=== PATIENT | male | born 1965 | race Caucasian/White ===

== ENCOUNTER → 2017-08-05 | Outpatient (CLI) | payer OTHER ==
[~2017-08-05] MED LIST: ATIVAN0.5 MG PER TUBE; COMPAZINE10 MG PER TUBE; COMPAZINE25 M1 RECTAL; ENDOCET 5-3251 EACH PER TUBE; FENTANYL PA12 MCG/H1 TRANSDERM; LISINOPRIL20 MG; MOBIC15 MG; PRILOSEC40 MG; TRANSDERM-SCO1 PATC1 TD; TUBE FEEDING PER TUBE; ZANTAC 15MG/15 MG/M1 PER TUBE; ZOFRAN SUSP4 MG/5 ML PER TUBE
--- NOTE | 2017-08-14 23:24 | PROC ---
[facility] [address] [place] [address] PROCEDURE REPORT Name: JUMAWAQAR Molina Room: [facility]#: [id number] Admission: 08/05/17 Attend Phys: Antwon Meléndez MD Discharge: Date of : 65 Report #: [id number] THIS REPORT FOR: //name// CC: Antwon Williamson MD DATE OF PROCEDURE: 08/05/2017 [facility] phone is [phone]. REFERRING PHYSICIANS: 1. Esdras Ogden M.D. 2. Rosa Williamson M.D. 3. Esdras Marques M.D. 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 Radiation treatments were completed on 03/09/2013. PROCEDURE: Nasopharyngolaryngoscopy. FINDINGS: On nasopharyngolaryngoscopy via the left nostril, after application of a small amount of 2% viscous lidocaine orally and 2% viscous lidocaine to the left nostril, there were no visible lesions in the nasopharynx. There were no visible lesions in the posterior oropharynx. There were no visible lesions involving the base of tongue. The true vocal cords were normally mobile bilaterally, without any visible lesions. There was no evidence of head and neck cancer. Thank you for allowing me to participate in the care of this patient. <ELECTRONICALLY SIGNED> By: Antwon Meléndez MD 08/14/17 2324 1014 [id number] Meléndez MD /nt
--- NOTE | 2017-08-14 23:26 | ONC ---
[place] [address] RADIATION ONCOLOGY NOTE Name: WAQAR DENNISON Room: [facility]#: [id number] Admission: 08/05/17 Attend Phys: Antwon Meléndez MD Discharge: Date of : 65 Report #: [id number] THIS REPORT FOR: //name// CC: Antwon Clay MD DATE OF SERVICE: 08/05/2017 REFERRING PHYSICIANS: Esdras Marques DO; Rosa Williamson MD; Esdras Ogden MD [facility] phone is [phone]. PRIMARY SITE AND HISTOPATHOLOGY: The patient had findings consistent with a stage T3 N0 M0 left tonsillar cancer/base of tongue cancer. The patient went on to receive chemoradiotherapy and radiation treatments were completed on 03/09/2013. INTERVAL NOTE: The patient is eating a regular diet. The patient is swallowing well. The patient has a good appetite. He is eating well. He said that, yesterday, he had a cheese steak sandwich and he swallowed that fine. He said that he had a prescription given to him for azithromycin because of findings consistent with an upper respiratory infection about a month ago. MEDICATIONS: 25 mcg of levothyroxine. He is on meloxicam for arthritic pains, Prilosec, hydrochlorothiazide and PreviDent. SOCIAL HISTORY: The patient is . 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 Cigarettes: he does not smoke. He has 2 sons. REVIEW OF SYSTEMS: RESPIRATORY: The patient was not short of breath. His breathing was baseline. MUSCULOSKELETAL: He had good range of motion of his upper extremities. PHYSICAL EXAMINATION: VITAL SIGNS: The patient weighed 243.4 pounds on 08/05/2017 and 245.6 pounds on 02/04/2017 and on 08/05/2017 blood pressure was 136/94, pulse 66, respirations 20, oxygen saturation was 94%. LYMPH NODES: The patient had no palpable cervical or supraclavicular lymphadenopathy. HEAD, EYES, EARS, NOSE AND THROAT: Mouth had no suspicious visible lesions or suspicious palpable lesions in the mouth. On nasopharyngolaryngoscopy via the left nostril after applying a small amount of 2% viscous lidocaine orally and 2% viscous lidocaine to the left nostril with a cotton swab, there were no visible lesions in the nasopharynx. There were no visible lesions in the posterior oropharynx. There were no visible lesions in [place] [address] RADIATION ONCOLOGY NOTE Name: WAQAR DENNISON Room: [facility]#: [id number] Admission: 08/05/17 Attend Phys: Antwon Meléndez MD Discharge: Date of : 65 Report #: [id number] vocal cords were normally mobile bilaterally without any visible lesions. HEART: Had a regular rate and rhythm without murmur. LUNGS: were clear to auscultation. LABORATORY DATA: The patient's TSH was 3.95 which was within normal limits on his present dose of 25 mcg of levothyroxine. ASSESSMENT AND PLAN: 1. History of head and neck cancer- There is no evidence of head and neck cancer at this time. The patient was asked to return for a followup appointment to see me in about 6 months. 2. Hypothyroidism- The patient takes 25 mcg of levothyroxine and his TSH was within normal limits at that dose of levothyroxine. The patient was given a requisition for a TSH in about 6 months and he was asked to schedule a followup appointment to see me afterwards. 3. Dental care- The patient was given a refill for PreviDent for dental care. His teeth look like they are in good shape. 4. Hypertension- The patient takes hydrochlorothiazide for hypertension that is managed by his referring physician. Thank you for allowing me to participate in the care of this patient. <ELECTRONICALLY SIGNED> By: Antwon Meléndez MD 08/14/17 2326 1020 1111Antwon Meléndez MD /nt
== END ==
LOC: M.RTH 01:37
DX: I10 Essential (primary) hypertension (principal); E03.9 Hypothyroidism, unspecified

== ENCOUNTER → 2018-02-22 | Outpatient (CLI) | payer OTHER ==
--- NOTE | 2018-03-05 15:07 | ONC ---
[place] [address] RADIATION ONCOLOGY NOTE Name: WAQAR DENNISON Room: [facility]#: [id number] Admission: 02/22/18 Attend Phys: Antwon Meléndez MD Discharge: Date of : 65 Report #: [id number] THIS REPORT FOR: //name// CC: Antwon Williamson MD DATE OF PROCEDURE: 02/22/2018 REFERRING PHYSICIANS: Include Dr. Marques, Dr. Esdras Ogden, Dr. Rosa Williamson. PRIMARY SITE AND HISTOPATHOLOGY: The patient received chemoradiotherapy for a stage III left tonsillar/base of tongue cancer. Radiation treatments were completed on 03/09/2013. PROCEDURE: Nasopharyngolaryngoscopy. FINDINGS: On nasopharyngolaryngoscopy via the left nostril after application of a small amount of 2% viscous lidocaine orally and 2% viscous lidocaine to the left nostril, there were no visible lesions in the nasopharynx. There were no visible lesions in the posterior pharynx. There were no visible lesions involving the base of tongue. The true vocal cords were normally mobile bilaterally without any visible lesions. There was no evidence of head and neck cancer. Thank you for allowing me to participate in the care of this patient. <ELECTRONICALLY SIGNED> By: Antwon Meléndez MD 03/05/18 1507 1231 193MD dilshad Lee
--- NOTE | 2018-03-05 16:39 | ONC ---
[place] [address] RADIATION ONCOLOGY NOTE Name: WAQAR DENNISON Room: [facility]#: [id number] Admission: 02/22/18 Attend Phys: Antwon Meléndez MD Discharge: Date of : 65 Report #: [id number] THIS REPORT FOR: //name// CC: Antwon Ogden MD DATE OF SERVICE: 02/22/2018 REFERRING PHYSICIANS: Dr. Rosa Williamson, Dr. Esdras Ogden, Dr. Esdras Marques. [facility] phone is [phone]. PRIMARY SITE AND HISTOPATHOLOGY: The patient had findings consistent with stage a stage III , T3 N0 M0, left tonsillar/base of tongue cancer. The patient went on to receive chemoradiotherapy and radiation treatments were completed on 03/09/2013. INTERVAL NOTE: The patient is eating a regular diet. The patient is swallowing well. He has a good appetite. He eats food such as cheese sandwiches. MEDICATIONS: 25 mcg of levothyroxine, meloxicam, hydrochlorothiazide, PreviDent. SOCIAL HISTORY: The patient is . 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 Cigarettes: he does not smoke cigarettes. He has 2 sons. REVIEW OF SYSTEMS: RESPIRATORY: The patient was not short of breath. His breathing was baseline. MUSCULOSKELETAL: Good range of motion of his upper extremities. PHYSICAL EXAMINATION: VITAL SIGNS: The patient weighed 265 pounds on 02/22/2018, that is with all his police gear on. He was 243.4 pounds on 08/05/2017, but he did not have all his police gear on, so a lot of the difference in weight is just from the gear that he is wearing. Pulse was 74, blood pressure 146/96, respirations 18, oxygen saturation 96% on room air. LYMPH NODES: The patient had no palpable cervical or supraclavicular lymphadenopathy. HEAD, EYES, EARS, NOSE AND THROAT: Mouth had no suspicious visible lesions or suspicious palpable lesions in the mouth. On nasopharyngolaryngoscopy via the left nostril after applying a small amount of 2% viscous lidocaine orally and 2% viscous lidocaine to the left nostril with a cotton swab, there were no visible lesions in the nasopharynx and no visible lesions in [place] [address] RADIATION ONCOLOGY NOTE Name: WAQAR DENNISON Room: [facility]#: [id number] Admission: 02/22/18 Attend Phys: Antwon Meléndez MD Discharge: Date of : 65 Report #: [id number] There were no visible lesions in the base of tongue area. True vocal cords were normally mobile bilaterally without any visible lesions. HEART: Had a regular rate and rhythm without murmur. LUNGS: were clear to auscultation. LABORATORY DATA: The patient's TSH was 4.07 (within normal limits) on 02/17/2018 on the present dose of 25 mcg of levothyroxine per day. ASSESSMENT AND PLAN: 1. History of head and neck cancer- There is no evidence of head and neck cancer at this time. The patient was asked to schedule a follow up appointment to see me in about 8 months. 2. Hypothyroidism- The patient was given a refill for 25 mcg of levothyroxine. He was given a requisition for TSH around 10/2018 or 11/2018. He was asked to schedule a follow up appointment to see me afterwards. 3. Dental care- The patient was given a refill for PreviDent for dental care. 4. Hypertension- The patient takes hydrochlorothiazide and his blood pressure is managed by his primary care physician. Thank you for allowing me to participate in the care of this patient. <ELECTRONICALLY SIGNED> By: Antwon Meléndez MD 03/05/18 1639 1239 1941Dchristian Meléndez MD /nt
== END ==
LOC: M.RTH 02-10 09:30
DX: Z08 Encounter for follow-up examination after completed treatment for malignant neoplasm (principal); E03.9 Hypothyroidism, unspecified; I10 Essential (primary) hypertension; Z85.89 Personal history of malignant neoplasm of other organs and systems

== ENCOUNTER → 2018-11-24 | Outpatient (CLI) | payer OTHER ==
--- NOTE | ~2018-11-24 | ONC ---
[place] [address] RADIATION ONCOLOGY NOTE Name: JUMAWAQAR Jesse Room: [facility]#: [id number] Admission: 11/24/18 Attend Phys: Antwon Meléndez MD Discharge: Date of : 65 Report #: [id number] THIS REPORT FOR: //name// CC: Antwon Marques DATE OF SERVICE: 11/24/2018 REFERRING PHYSICIANS: 1. Esdras Marques DO 2. Esdras Ogden MD 3. Rosa Williamson MD PRIMARY SITE AND HISTOPATHOLOGY: The patient received chemoradiotherapy for stage 3 left tonsillar base of tongue cancer. Radiation treatments were completed on 03/09/2013. PROCEDURE: Nasopharyngolaryngoscopy. FINDINGS: On nasopharyngolaryngoscopy via the left nostril after application of a small amount of 2% viscous lidocaine orally, 2% viscous lidocaine to the left nostril, there were no visible lesions in the nasopharynx and no visible lesions in the posterior pharynx. No visible lesions involving the base of tongue. The true vocal cords are normally mobile bilaterally without any visible lesions. There is no evidence of neck cancer. Thank you for allowing me to participate in the care of this patient. By: [id number] [id number] Meléndez MD /nt
--- NOTE | ~2018-11-24 | ONC ---
[address] [address] RADIATION ONCOLOGY NOTE Name: JUMAWAQAR Molina Room: [facility]#: [id number] Admission: 11/24/18 Attend Phys: Anwton Meléndez MD Discharge: Date of : 65 Report #: [id number] THIS REPORT FOR: //name// CC: Antwon Marques DATE OF SERVICE: 11/24/2018 RADIATION ONCOLOGY FOLLOWUP NOTE REFERRING PHYSICIANS: Dr. Esdras Marques, Dr. Esdras Ogden. [facility] phone is [phone]. PRIMARY SITE AND HISTOPATHOLOGY: The patient has findings consistent with a stage 3, T3 N0 M0 left tonsillar base of tongue cancer. The patient went on to receive chemoradiotherapy. The radiation treatments were completed on 03/09/2013. INTERVAL NOTE: The patient is eating a regular diet. The patient is swallowing well. The patient has a good appetite. MEDICATIONS: He takes 25 mcg of levothyroxine per day as well as meloxicam, hydrochlorothiazide and PreviDent. SOCIAL HISTORY: The patient is . 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 Cigarettes, he does not smoke cigarettes. He has 2 sons. REVIEW OF SYSTEMS: RESPIRATORY: The patient was not short of breath. His breathing was baseline. MUSCULOSKELETAL: He has good range of motion of his upper extremities. PHYSICAL EXAMINATION: VITAL SIGNS: He weighed 239.2 pounds on 11/24/2018. Then on ____ he was 265 pounds, but had his police gear, which probably weighs about 30-40 pounds, probably has not changed too much weight. He is trying to lose weight, but he says his weight has been pretty stable. Blood pressure is 141/99, pulse 66, respirations 18, oxygen saturation is 100%. LYMPH NODES: The patient no palpable cervical or supraclavicular lymphadenopathy. HEAD, EYES, EARS, NOSE AND THROAT: Mouth had no suspicious visible lesions or suspicious palpable lesions in the mouth. On nasopharyngolaryngoscopyy via the left nostril after applying a small amount of 2% viscous lidocaine orally and 2% viscous lidocaine to left nostril with a cotton swab, there were no visible lesions in the nasopharynx, no visible lesions in the posterior oropharynx. There were no visible lesions in the base of tongue [place] [address] RADIATION ONCOLOGY NOTE Name: WAQAR DENNISON Room: [facility]#: [id number] Admission: 11/24/18 Attend Phys: Antwon Meléndez MD Discharge: Date of : 65 Report #: [id number] are normally mobile bilaterally without any visible lesions. HEART: Had a regular rate and rhythm without murmur. LUNGS: Clear to auscultation. LABORATORY DATA: From 11/21/2018, The TSH was 3.51, which is within normal limits with the patient taking 25 mcg of levothyroxine. ASSESSMENT AND PLAN: 1. History of head and neck cancer. There is no evidence of head and neck cancer at this time. The patient was given a requisition. The patient was asked to schedule a followup appointment to see me in about 12 months. 2. Hypothyroidism. The patient was given a refill for 25 mcg of levothyroxine. He was given a requisition for TSH to be done in about 1 year. He was asked to schedule a followup appointment to see me afterwards. 3. Dental care. The patient was given a refill for PreviDent for dental care. 4. Hypertension. The patient takes hydrochlorothiazide for his hypertension that is managed by his referring physicians. Thank you for allowing me to participate in the care of this patient. By: 1056 [id number] Meléndez MD /heath
== END | disposition home or self-care (01) ==
LOC: M.RTH 04:02
DX: Z08 Encounter for follow-up examination after completed treatment for malignant neoplasm (principal); Z85.810 Personal history of malignant neoplasm of tongue; E03.9 Hypothyroidism, unspecified; I10 Essential (primary) hypertension; Z79.899 Other long term (current) drug therapy; Z98.890 Other specified postprocedural states; Z88.6 Allergy status to analgesic agent

== ENCOUNTER → 2019-11-23 | Outpatient (CLI) | payer OTHER ==
--- NOTE | 2019-11-25 19:15 | ONC ---
[facility] [address] [place] [address] RADIATION ONCOLOGY NOTE Name: JUMAWAQAR Molina Room: [facility]#: [id number] Admission: 11/23/19 Attend Phys: Antwon Meléndez MD Discharge: Date of : 65 Report #: [id number] THIS REPORT FOR: //name// CC: Antwon Ogden MD DATE OF SERVICE: 11/23/2019 RADIATION ONCOLOGY PROCEDURE NOTE REFERRING PHYSICIANS: Include Esdras Marques M.D., Esdras Ogden M.D., and Rosa Williamson M.D. PRIMARY SITE AND HISTOPATHOLOGY: The patient received chemoradiotherapy for a stage III left tonsillar/base of tongue cancer. Radiation treatments were completed on 03/09/2013. PROCEDURE: Nasopharyngolaryngoscopy. FINDINGS: On nasopharyngolaryngoscopy via the left nostril, after application of a small amount of 2% viscous lidocaine orally, 2% viscous lidocaine to the left nostril, there were no visible lesions in the nasopharynx, no visible lesions in the posterior pharynx. There were no visible lesions involving the base of tongue. The true vocal cords were normally mobile bilaterally without any visible lesions. There was no evidence of head and neck cancer. Thank you for allowing me to participate in the care of this patient. <ELECTRONICALLY SIGNED> By: Antwon Meléndez MD 11/25/19 1915 1055 1103DMD dilshad Chu
--- NOTE | 2019-11-25 19:57 | ONC ---
[address] [address] RADIATION ONCOLOGY NOTE Name: WAQAR DENNISON Room: [facility]#: [id number] Admission: 11/23/19 Attend Phys: Antwon Meélndez MD Discharge: Date of : 65 Report #: [id number] THIS REPORT FOR: //name// CC: Antwon Williamson MD DATE OF SERVICE: 11/23/2019 RADIATION ONCOLOGY FOLLOWUP NOTE REFERRING PHYSICIANS: Dr. Esdras Marques and Dr. Esdras Ogden. [facility] phone is [phone]. PRIMARY SITE AND HISTOPATHOLOGY: The patient had findings consistent with a stage III T3 N0 M0 left tonsillar/base of tongue cancer and the patient went on to receive chemotherapy/radiation therapy. The radiation treatments were completed on 03/09/2013. INTERVAL NOTE: The patient has a good voice quality. He is eating a regular diet. The patient is swallowing well and the patient has a good appetite. MEDICATIONS: The patient is taking 25 mcg of levothyroxine per day. He takes meloxicam as needed for arthritis. He also takes hydrochlorothiazide. He uses PreviDent with his dental trays. SOCIAL HISTORY: The patient is . 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 Cigarettes: he does not smoke cigarettes. He has 2 sons. REVIEW OF SYSTEMS: RESPIRATORY: The patient was not short of breath. His breathing was baseline. MUSCULOSKELETAL: He has good range of motion of his upper extremities. PHYSICAL EXAMINATION: VITAL SIGNS: The patient weighed 223 pounds on 11/23/2019, he was 239.2 pounds on 11/24/2018. He said he was trying to lose weight. He got down to 215 pounds, but has gained some weight back and on 11/23/2019 blood pressure was 139/96, pulse 69, oxygen saturation 100%, temperature 98.1 degrees Fahrenheit, respirations were 18. LYMPH NODES: He had no palpable cervical or supraclavicular lymphadenopathy. HEAD, EYES, EARS, NOSE AND THROAT: Mouth had no suspicious visible lesions. Mouth had no suspicious palpable lesions. On Nasopharyngolaryngoscopy via the left nostril after applying a small amount of 2% viscous lidocaine orally and 2% [place] [address] RADIATION ONCOLOGY NOTE Name: WAQAR DENNISON Room: [facility]#: [id number] Admission: 11/23/19 Attend Phys: Antwon Meléndez MD Discharge: Date of : 65 Report #: [id number] viscous lidocaine to the left nostril. There were no visible lesions in the nasopharynx. There were no visible lesions in the posterior oropharynx. There were no visible lesions in the base of tongue area. The true vocal cords were normally mobile bilaterally without any suspicious visible lesions. HEART: Had a regular rate and rhythm without murmur. LUNGS: were clear to auscultation. LABORATORY DATA: The patient's TSH level was elevated with him taking 25 mcg of levothyroxine per day. His TSH was 6.68 on 11/20/2019 with normal being 0.4-4.5. ASSESSMENT AND PLAN: 1. History of head and neck cancer- There is no evidence of head and neck cancer at this time. The patient was asked to schedule a followup appointment to see me in about 12 months. 2. Hypothyroidism- The patient's TSH was elevated with him taking 25 mcg of Levothyroxine per day. His levothyroxine was increased from 25 mcg per day to 50 mcg per day and a TSH was ordered in about 1 year and the patient was asked to schedule a followup appointment to see me afterwards. 3. Dental care- The patient was given a refill for PreviDent for dental care. 4. Hypertension- The patient takes hydrochlorothiazide for his hypertension and that is managed by his referring physicians. Thank you for allowing me to participate in the care of this patient. <ELECTRONICALLY SIGNED> By: Antwon Meléndez MD 11/25/19 1957 1106 1136Antwon Meléndez MD /nt
== END ==
LOC: M.RTH 09:45
PROVIDERS: ATTEND Radiology Radiation Oncology
DX: I10 Essential (primary) hypertension (principal); E03.9 Hypothyroidism, unspecified; Z85.89 Personal history of malignant neoplasm of other organs and systems